=== PATIENT | male | born 1980 | race Two or more races ===

== ENCOUNTER 2024-03-05 00:13 | Emergency (ER) | payer SELFPAY ==
[2024-03-05 00:35] LABS: BASOPHILS ABSOLUTE AUTO 0.06 K/uL (0.00-0.20); BASOPHILS PERCENT AUTO 0.6 % (0.0-1.0); EOSINOPHILS ABSOLUTE AUTO 0.23 K/uL (0.00-0.45); EOSINOPHILS PERCENT AUTO 2.4 % (0.0-6.0); HEMATOCRIT 42.6 % (42.0-52.0); HEMOGLOBIN 14.5 g/dL (14.0-18.0); IMMATURE GRAN ABSOLUTE AUTO 0.04 K/uL (0.00-0.05); IMMATURE GRAN PERCENT AUTO 0.4 % (0.0-0.4); LYMPHOCYTES ABSOLUTE AUTO 1.33 K/uL (1.00-4.80); MEAN CORPUSCULAR HEMOGLOBIN 31.1 pg (28.0-32.0); MEAN CORPUSCULAR VOLUME 91.4 fL (83.0-99.0); MEAN PLATELET VOLUME 9.8 fL (9.4-12.4); MONOCYTES ABSOLUTE AUTO 0.57 K/uL (0.00-0.80); NEUTROPHILS ABSOLUTE AUTO 7.27 K/uL (1.80-7.70); NEUTROPHILS PERCENT AUTO 76.6 % (41.0-71.0); PLATELET COUNT,PLT 294 K/uL (150-400); RED BLOOD CELL COUNT 4.66 M/uL (4.52-5.90)
[2024-03-05] MEDS: Sodium Chloride 0.9% 2.5 ML Syringe FLUSH PRN (00:38)
[2024-03-05] MEDS: HYDROmorphone 1 MG/ML Syringe IVPUSH ONE (00:38)
[2024-03-05] MEDS: Sodium Chloride 0.9% 10 ML Syringe FLUSH PRN (00:38)
[2024-03-05] MEDS: Sodium Chloride 0.9% 1,000 ML IV ONE (00:38)
[2024-03-05] MEDS: Alum Hydro/Mag Hydro/Simeth XS 15 ML, Lidocaine 2% 5 ML PO ONE (00:38)
[2024-03-05 00:42] LABS: INR 0.99 (0.86-1.11)
[2024-03-05 00:54] LABS: A/G RATIO 1.3 (0.9-1.6); ALANINE AMINOTRANSFERASE,ALT 60 IU/L (14-63); ALBUMIN 4.2 g/dL (3.4-5.0); ALKALINE PHOSPHATASE 105 U/L (46-116); ASPARTATE AMNIOTRANSFERASE,AST 37 IU/L (15-37); BILIRUBIN TOTAL 0.4 mg/dL (0.2-1.0); BLOOD UREA NITROGEN,BUN 13 mg/dL (7.0-18.0); CHLORIDE,CL 105 mmol/L (98-107); CREATININE 0.9 mg/dL (0.8-1.3); EST CRCL DRUG DOSING (CG) 101.33 mL/min; ESTIMATED GFR 108 mL/min (>60); ETHANOL BLOOD MEDICAL < 3.0 mg/dL; GLUCOSE RANDOM 119 mg/dL (74-106); LIPASE 30 U/L (16-77); POTASSIUM,K 3.8 mmol/L (3.5-5.1); PROTEIN TOTAL,TP 7.5 g/dL (6.4-8.2); SODIUM,NA 142 mmol/L (136-148)
[2024-03-05 01:14] LABS: APPEARANCE,URINE CLEAR; BILIRUBIN,URINE NEGATIVE (NEGATIVE); COLOR,URINE YELLOW; GLUCOSE,URINE NEGATIVE (NEGATIVE); KETONES,URINE NEGATIVE (NEGATIVE); LEUKOCYTE ESTERASE,URINE NEGATIVE (NEGATIVE); NITRITE,URINE NEGATIVE (NEGATIVE); OCCULT BLOOD,URINE NEGATIVE (NEGATIVE); PROTEIN,URINE NEGATIVE (NEGATIVE); UROBILINOGEN,URINE 0.2 EU/dL (<2.0)
[2024-03-05 01:19] LABS: LACTIC ACID 1.5 mmol/L (0.4-2.0)
[2024-03-05 01:24] LABS: AMPHETAMINES SCREEN, URINE NEGATIVE (CUTOFF=500); BARBITURATE SCREEN,URINE NEGATIVE (CUTOFF=200); BENZODIAZEPINES SCREEN,URINE NEGATIVE (CUTOFF=150); BUPRENORPHINE SCREEN,URINE NEGATIVE (CUTOFF=10); METHADONE SCREEN, URINE NEGATIVE (CUTOFF=200); METHAMPHETAMINES SCREEN, URINE NEGATIVE (CUTOFF=500); OXYCODONE SCREEN,URINE NEGATIVE (CUT0FF=100); PCP SCREEN,URINE NEGATIVE (CUTOFF=25); THC SCREEN,URINE 20 NG/ML NEGATIVE (CUTOFF=50)
[2024-03-05] MEDS: Iopamidol 755 MG/ML 500 ML Multipack Bottle IVPUSH ONE (03:22)
[2024-03-05] MEDS ORDERED: Iopamidol 755 MG/ML 500 ML Multipack Bottle IVPUSH ONE (03:22)
== END 2024-03-05 05:07 | disposition home or self-care (01) ==
LOC: MW.ED 00:13
DX: R10.84 Generalized abdominal pain (principal)
CPT/HCPCS: 36415; 71045; 71275; 74174; 80053; 80305; 80307; 81003; 83605; 83690; 84484; 85025; 85379; 85610; 93005; 96361; 96374; 99285; A9270; J1170; J3490; J7030; Q9967; 93010; 99284

== ENCOUNTER 2024-11-06 06:53 | Emergency (ER) | payer SELFPAY ==
[2024-11-06] MEDS ORDERED: Morphine 4 MG/ML Syringe IVPUSH PRN (07:04)
[2024-11-06 07:14] LABS: BASOPHILS ABSOLUTE AUTO 0.08 K/uL (0.00-0.20); EOSINOPHILS ABSOLUTE AUTO 0.35 K/uL (0.00-0.45); EOSINOPHILS PERCENT AUTO 4.4 % (0.0-6.0); HEMATOCRIT 41.3 % (42.0-52.0); HEMOGLOBIN 14.3 g/dL (14.0-18.0); IMMATURE GRAN ABSOLUTE AUTO 0.03 K/uL (0.00-0.05); IMMATURE GRAN PERCENT AUTO 0.4 % (0.0-0.4); LYMPHOCYTES ABSOLUTE AUTO 1.52 K/uL (1.00-4.80); LYMPHOCYTES PERCENT AUTO 19.3 % (24.0-44.0); MEAN CORPUSCULAR HEMOGLOBIN 30.2 pg (28.0-32.0); MEAN CORPUSCULAR HGB CONC 34.6 g/dL (32.0-36.0); MEAN CORPUSCULAR VOLUME 87.1 fL (83.0-99.0); MONOCYTES ABSOLUTE AUTO 0.48 K/uL (0.00-0.80); MONOCYTES PERCENT AUTO 6.1 % (0.0-8.0); NEUTROPHILS ABSOLUTE AUTO 5.42 K/uL (1.80-7.70); NEUTROPHILS PERCENT AUTO 68.8 % (41.0-71.0); PLATELET COUNT,PLT 307 K/uL (150-400); RED BLOOD CELL COUNT 4.74 M/uL (4.52-5.90); WHITE BLOOD CELL COUNT,WBC 7.88 K/uL (3.9-11.3)
[2024-11-06] MEDS: Sodium Chloride 0.9% 1,000 ML IV ONE (07:35)
[2024-11-06] MEDS: Ondansetron 4 MG/2 ML SDV IVPUSH ONE (07:35)
[2024-11-06] MEDS: Pantoprazole 40 MG in Sodium Chloride 0.9% 10 ML IVPUSH ONE (07:35)
[2024-11-06] MEDS: Ketorolac 30 MG/ML SDV IVPUSH ONE (07:35)
[2024-11-06 07:36] LABS: A/G RATIO 1.2 (0.9-1.6); ALBUMIN 3.7 g/dL (3.4-5.0); BILIRUBIN TOTAL 0.3 mg/dL (0.2-1.0); CALCIUM 8.6 mg/dL (8.5-10.1); CARBON DIOXIDE,CO2 25.9 mmol/L (21.0-32.0); EST CRCL DRUG DOSING (CG) 90.25 mL/min; POTASSIUM,K 3.9 mmol/L (3.5-5.1); PROTEIN TOTAL,TP 6.9 g/dL (6.4-8.2)
[2024-11-06] MEDS: droPERidol 2.5 MG/ML SDV IVPUSH PRN (07:54)
[2024-11-06] MEDS: Iopamidol 755 Mg/ML 100 ML Bottle IVPUSH STA (08:11)
[2024-11-06] MEDS: Alum Hydrox/Mag Hydrox/Simeth 15 ML, Metoclopramide 5 MG, Lidocaine 2% 5 ML PO ONE (08:16)
== END 2024-11-06 08:38 | disposition home or self-care (01) ==
LOC: MW.ED 06:53
DX: K44.9 Diaphragmatic hernia without obstruction or gangrene (principal); K21.9 Gastro-esophageal reflux disease without esophagitis; M54.9 Dorsalgia, unspecified; R10.13 Epigastric pain; R10.816 Epigastric abdominal tenderness; Z79.899 Other long term (current) drug therapy
CPT/HCPCS: 36415; 74177; 80053; 80307; 83690; 85025; 96361; 96374; 96375; 99284; A9270; J1790; J1885; J2405; J2470; J7030; Q9967

== ENCOUNTER 2025-03-09 02:46 | Emergency (ER) | payer SELFPAY ==
[2025-03-09] MEDS: Ondansetron 4 MG/2 ML SDV IVPUSH ONE (03:02)
[2025-03-09 03:07] LABS: BASOPHILS ABSOLUTE AUTO 0.09 K/uL (0.00-0.20); BASOPHILS PERCENT AUTO 0.7 % (0.0-1.0); EOSINOPHILS ABSOLUTE AUTO 0.19 K/uL (0.00-0.45); EOSINOPHILS PERCENT AUTO 1.4 % (0.0-6.0); IMMATURE GRAN ABSOLUTE AUTO 0.08 K/uL (0.00-0.05); IMMATURE GRAN PERCENT AUTO 0.6 % (0.0-0.4); LYMPHOCYTES ABSOLUTE AUTO 1.56 K/uL (1.00-4.80); LYMPHOCYTES PERCENT AUTO 11.4 % (24.0-44.0); MEAN PLATELET VOLUME 9.5 fL (9.4-12.4); MONOCYTES ABSOLUTE AUTO 0.55 K/uL (0.00-0.80); MONOCYTES PERCENT AUTO 4.0 % (0.0-8.0); NEUTROPHILS ABSOLUTE AUTO 11.25 K/uL (1.80-7.70); NEUTROPHILS PERCENT AUTO 81.9 % (41.0-71.0); NRBC ABSOLUTE 0.00 K/uL (0.00-0.02); NRBC PERCENT 0.0 /100WBC (0.0-0.2); PLATELET COUNT,PLT 271 K/uL (150-400); RED BLOOD CELL COUNT 5.98 M/uL (4.52-5.90); WHITE BLOOD CELL COUNT,WBC 13.72 K/uL (3.9-11.3)
[2025-03-09] MEDS: Hyoscyamine 0.125 MG Tab.SL SL ONE (03:13)
[2025-03-09] MEDS: droPERidol 2.5 MG/ML SDV IVPUSH ONE (03:30)
[2025-03-09] MEDS ORDERED: Naloxone 0.4 MG/ML SDV IVPUSH PRN (03:46)
[2025-03-09 03:57] LABS: A/G RATIO 1.3 (0.9-1.6); ALANINE AMINOTRANSFERASE,ALT 34.0 IU/L (14-63); ASPARTATE AMNIOTRANSFERASE,AST 20.0 IU/L (15-37); BILIRUBIN TOTAL 0.4 mg/dL (0.2-1.0); BLOOD UREA NITROGEN,BUN 13.0 mg/dL (7.0-18.0); CARBON DIOXIDE,CO2 31.3 mmol/L (21.0-32.0); CHLORIDE,CL 100.0 mmol/L (98-107); CREATININE 1.2 mg/dL (0.8-1.3); EST CRCL DRUG DOSING (CG) 75.21 mL/min; GLUCOSE RANDOM 117.0 mg/dL (74-106); POTASSIUM,K 3.8 mmol/L (3.5-5.1); PROTEIN TOTAL,TP 7.9 g/dL (6.4-8.2); SODIUM,NA 140.0 mmol/L (136-148)
[2025-03-09 03:59] LABS: ESTIMATED GFR 76.0 mL/min (>60)
[2025-03-09] MEDS: Iopamidol 755 Mg/ML 100 ML Bottle IVPUSH ONE (04:18)
[2025-03-09 04:28] LABS: APPEARANCE,URINE CLEAR; GLUCOSE,URINE NEGATIVE (NEGATIVE); OCCULT BLOOD,URINE TRACE-INTACT (NEGATIVE)
[2025-03-09 05:15] LABS: EPITHELIAL CELLS,URINE NOT SEEN (NONE-FEW)
[2025-03-09] MEDS: hydrALAZINE 20 MG/ML SDV IVPUSH ONE ×2 (06:35→07:40)
[2025-03-09] MEDS: fentaNYL 50 MCG/ML SDV IVPUSH ONE (07:53)
[2025-03-09] MEDS: Alum Hydrox/Mag Hydrox/Simeth 15 ML, Metoclopramide 5 MG, Lidocaine 2% 5 ML PO ONE (08:50)
[2025-03-09] MEDS: Sucralfate Suspension 1 GM/10 ML Cup PO ONE (10:29)
== END 2025-03-09 12:35 | disposition home or self-care (01) ==
LOC: MW.ED 02:46
DX: K80.70 Calculus of gallbladder and bile duct without cholecystitis without obstruction (principal); K29.50 Unspecified chronic gastritis without bleeding; Z79.899 Other long term (current) drug therapy; Z75.3 Unavailability and inaccessibility of health-care facilities
CPT/HCPCS: 36415; 71045; 71260; 74177; 76705; 80053; 81001; 83690; 84484; 85025; 93005; 96361; 96374; 96375; 96376; 99284; A9270; J0360; J1790; J2270; J2405; J3010; J7030; Q9967; 93010; J1171

== ENCOUNTER 2025-07-08 01:47 | Emergency (ER) | payer BC ==
[2025-07-08] MEDS: Ondansetron 4 MG/2 ML SDV IVPUSH STA (02:59)
[2025-07-08 03:12] LABS: BASOPHILS ABSOLUTE AUTO 0.05 K/uL (0.00-0.20); BASOPHILS PERCENT AUTO 0.5 % (0.0-1.0); EOSINOPHILS ABSOLUTE AUTO 0.32 K/uL (0.00-0.45); EOSINOPHILS PERCENT AUTO 3.1 % (0.0-6.0); IMMATURE GRAN ABSOLUTE AUTO 0.05 K/uL (0.00-0.05); IMMATURE GRAN PERCENT AUTO 0.5 % (0.0-0.4); LYMPHOCYTES ABSOLUTE AUTO 0.92 K/uL (1.00-4.80); LYMPHOCYTES PERCENT AUTO 9.0 % (24.0-44.0); MEAN PLATELET VOLUME 8.4 fL (9.4-12.4); MONOCYTES ABSOLUTE AUTO 0.53 K/uL (0.00-0.80); MONOCYTES PERCENT AUTO 5.2 % (0.0-8.0); NEUTROPHILS ABSOLUTE AUTO 8.40 K/uL (1.80-7.70); NEUTROPHILS PERCENT AUTO 81.7 % (41.0-71.0); NRBC ABSOLUTE 0.00 K/uL (0.00-0.02); NRBC PERCENT 0.0 /100WBC (0.0-0.2); PLATELET COUNT,PLT 341 K/uL (150-400); RED BLOOD CELL COUNT 4.88 M/uL (4.52-5.90); WHITE BLOOD CELL COUNT,WBC 10.27 K/uL (3.9-11.3)
[2025-07-08 03:34] LABS: A/G RATIO 0.9 (0.9-1.6); ALANINE AMINOTRANSFERASE,ALT 62.0 IU/L (14-63); ASPARTATE AMNIOTRANSFERASE,AST 33.0 IU/L (15-37); BILIRUBIN TOTAL 0.3 mg/dL (0.2-1.0); BLOOD UREA NITROGEN,BUN 14.0 mg/dL (7.0-18.0); CARBON DIOXIDE,CO2 30.6 mmol/L (21.0-32.0); CHLORIDE,CL 101.0 mmol/L (98-107); CREATININE 1.0 mg/dL (0.8-1.3); EST CRCL DRUG DOSING (CG) 90.25 mL/min; GLUCOSE RANDOM 96.0 mg/dL (74-106); POTASSIUM,K 4.3 mmol/L (3.5-5.1); PROTEIN TOTAL,TP 7.9 g/dL (6.4-8.2); SODIUM,NA 137.0 mmol/L (136-148)
[2025-07-08 03:35] LABS: ESTIMATED GFR 95.0 mL/min (>60)
[2025-07-08] MEDS: Iopamidol 755 Mg/ML 100 ML Bottle IVPUSH ONE (03:52)
[2025-07-08] MEDS: fentaNYL 50 MCG/ML SDV IVPUSH ONE (06:06)
== END 2025-07-08 10:00 ==
LOC: MW.ED 01:47
DX: L02.211 Cutaneous abscess of abdominal wall (principal); F17.200 Nicotine dependence, unspecified, uncomplicated; Z79.899 Other long term (current) drug therapy
CPT/HCPCS: 36415; 74177; 80053; 83690; 85025; 86850; 86900; 86901; 96365; 96375; 96376; 99285; J1171; J2405; J2543; J3010; J7030; Q9967